=== PATIENT | male | born 1990 | race Caucasian/White ===

== ENCOUNTER 2018-06-07 18:44 | Inpatient (IN) | payer OTHER ==
[2018-06-07] VITALS (13 sets, daily range): BP systolic 120–158; BP diastolic 53–96
[~2018-06-07] VITALS: Ht 188 cm; Wt 86.2 kg
[2018-06-07] MEDS ORDERED: NS 250ML 250 ML IV ONE ×2 (18:47→23:39)
[2018-06-07] MEDS ORDERED: [UNRECOGNIZED DRUG - OTHER] ONE ×3 (18:47→20:45)
[2018-06-07] MEDS ORDERED: MORPHINE SULFATE ONE (18:56)
[2018-06-07] MEDS ORDERED: ZOFRAN ONE (18:56)
[2018-06-07] MEDS ORDERED: BENADRYL ONE (19:02)
[2018-06-07] MEDS ORDERED: TETANUS DIPHTHERIA TOXOIDS IM STA (19:04)
[2018-06-07] MEDS ORDERED: ZOFRAN IV STA (19:04)
[2018-06-07] MEDS ORDERED: BENADRYL IV STA (19:04)
[2018-06-07] MEDS ORDERED: [UNRECOGNIZED DRUG - OTHER] IV STA (19:04)
[2018-06-07] MEDS ORDERED: ROCEPHIN IV STA (19:04)
[2018-06-07] MEDS ORDERED: SOLU-MEDROL ONE (19:09)
[2018-06-07] MEDS ORDERED: PEPCID IV ONE (19:09)
[2018-06-07] MEDS ORDERED: SOLU-MEDROL IV STA (19:10)
[2018-06-07] MEDS ORDERED: PEPCID IV STA (19:10)
[2018-06-07] MEDS ORDERED: EPINEPHRINE SQ STA (19:10)
--- NOTE | 2018-06-07 19:18 | ER.PDOC ---
General Chief Complaint: Requesting Medical Care Stated Complaint: SNAKE BITE TRAVEL OUT OF US: No Time seen by MD: 19:11 Source: patient Exam Limitations: no limitations History of Present Illness Initial Comments Pain and swelling right hand secondary to snake bite. Timing/Duration: 1 hour Severity: moderate Associated Symptoms: nausea/vomiting Allergies: Coded Allergies: No Known Allergies (Unverified , 06/07/18) Past Medical History Medical History: no pertinent history Surgical History: no surgical history Review of Systems Constitutional: no symptoms reported EENTM: no symptoms reported Respiratory: no symptoms reported Cardiovascular: no symptoms reported Gastrointestinal: no symptoms reported Musculoskeletal: see HPI Skin: rash All Other Systems: Reviewed and Negative Physical Exam General Appearance: No Apparent Distress, WD/WN, Anxious EENT: eyes nml inspection Neck: Non-Tender Respiratory: chest non-tender, lungs clear, normal breath sounds, no respiratory distress, no accessory muscle use CVS: reg rate & rhythm, no murmur, no gallop, pulses nml, nml capillary refill Gastrointestinal: Normal Bowel Sounds, No Organomegaly, No Pulsatile Mass, Non Tender Back: Normal Inspection Extremities: Swelling (right hand with 2 punture wounds on the dorsum) 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, No Motor/Sensory Deficits, Alert, Normal Mood/Affect Skin: Rash (macular on trunck and face) Results/Orders Results/Orders Laboratory Tests Test 06/07/18 19:25 White Blood Count 11.9 10^3/uL (4.5-11.0) Red Blood Count 4.97 10^6/uL (4.50-5.90) Hemoglobin 14.8 g/dL (13.9-16.3) Hematocrit 43.2 % (37.0-53.0) Mean Corpuscular Volume 86.9 fL (78-100) Mean Corpuscular Hemoglobin 29.8 pg (26-34) Mean Corpuscular Hemoglobin Concent 34.3 g/dL (33-37) Red Cell Distribution Width 12.1 % (11.5-14.5) Platelet Count 162 10^3/uL (150-400) Mean Platelet Volume 10.2 fL (7.8-11.0) Neutrophils (%) (Auto) 51.5 % (41.0-85.0) Lymphocytes (%) (Auto) 42.1 % (24.0-44.0) Monocytes (%) (Auto) 5.4 % (5.0-12.0) Neutrophils # (Auto) 6.1 10^3/uL (1.8-7.7) Lymphocytes # (Auto) 5.0 10^3/uL (1.0-4.8) Monocytes # (Auto) 0.6 10^3/uL (0.3-0.8) Absolute Immature Granulocyte (auto 0.03 10^3 u/L (0-2) Eosinophils % 0.4 % (0.0-5.0) Basophils % 0.3 % (0.0-0.2) Basophils # 0.0 10^3/uL (0.0-0.1) Eosinophil Count 0.1 10^3/uL (0.0-0.2) Prothrombin Time 12.0 SEC (9.8-11.9) Prothrombin Time INR (Non-Therap) 1.2 Activated Partial Thromboplast Time 22.1 SEC (24.67-30.72) Fibrinogen 167 mg/dL (200-400) Sodium Level 140 mmol/L (132-145) Potassium Level 3.7 mmol/L (3.6-5.2) Chloride Level 107.0 mmol/L (96-109) Carbon Dioxide Level 20.6 mmol/L (20.0-32) Anion Gap 16.1 Blood Urea Nitrogen 24 mg/dL (7-18) Creatinine 1.19 mg/dL (0.59-1.40) Estimated GFR () 89.4 (>/=60) BUN/Creatinine Ratio 20.0 Glucose Level 143 mg/dL (70-110) Calcium Level 8.7 mg/dL (8.4-10.5) Phosphorus Level 3.3 mg/dL (2.5-4.9) Total Bilirubin 0.4 mg/dL (0.2-1.0) Aspartate Amino Transf (AST/SGOT) 18 U/L (0-35) Alanine Aminotransferase (ALT/SGPT) 18 U/L (12-78) Alkaline Phosphatase 68 U/L (50-136) Total Protein 6.7 g/dL (6.4-8.2) Albumin 3.9 g/dL (3.4-5.0) Globulin 2.8 Percent Immature Gran (Cell Imm) 0.30 % (0.00-0.50) Departure Time of Disposition: 20:12 Disposition: 09 ADMITTED INPATIENT Impression: Primary Impression: Bite, snake, venomous Qualified Codes: T63.001A - Toxic effect of unspecified snake venom, accidental (unintentional), initial encounter Condition: Critical Referrals: PCP,UNKNOWN (PCP) PRIMARY CARE PROVIDER Comments Admitted to Dr. Card Duration or Time Spent with Pa: 60 mins Critical Care Note Total Time (mins): 60 TABATAH,KOURTNEY Feliz MD Jun 07, 2018 19:18
--- NOTE | 2018-06-07 19:20 | PCM.EKG ---
[facility] Test Date: 2018-06-07 Test Time: 19:24:41 Pat Name: ASH MCQUEEN Department: Room: ICU2 Gender: M Education Professional: JAVAD : 1990 Requested By: KOURTNEY MAYS Order Number: [id number] Reading MD: Kourtney MAYS Measurements Intervals [place] Rate: 57 P: 67 RI: 160 QRS: 88 QRSD: 112 T: 63 QT: 446 QTc: 434 Interpretive Statements Sinus bradycardia with sinus arrhythmia Otherwise normal ECG No previous ECG available for comparison Electronically Signed On 06-11-2018 23:24:25 CDT by Kourtney MAYS Please click the below link to view image of tracing.
[2018-06-07 19:39] LABS: BASOPHIL % 0.3 % (0.0-0.2); EOSINOPHIL # 0.1 10^3/uL (0.0-0.2); EOSINOPHIL % 0.4 % (0.0-5.0); HEMOGLOBIN 14.8 g/dL (13.9-16.3); LYMPHOCYTES % 42.1 % (24.0-44.0); MEAN CELL HGB 29.8 pg (26-34); MEAN CELL HGB CONCENTRATION 34.3 g/dL (33-37); MEAN CORP VOLUME 86.9 fL (78-100); MEAN PLATELET VOLUME 10.2 fL (7.8-11.0); MONOCYTES # 0.6 10^3/uL (0.3-0.8); MONOCYTES % 5.4 % (5.0-12.0); NEUTROPHIL # 6.1 10^3/uL (1.8-7.7); NEUTROPHILS % 51.5 % (41.0-85.0); RED CELL DISTRIBUTION WIDTH 12.1 % (11.5-14.5); WHITE BLOOD CELL 11.9 10^3/uL (4.5-11.0)
[2018-06-07 19:55] LABS: CALCIUM 8.7 mg/dL (8.4-10.5); CARBON DIOXIDE 20.6 mmol/L (20.0-32)
[2018-06-07] MEDS ORDERED: DILAUDID IV STA (20:11)
[2018-06-07] MEDS ORDERED: D5W-1/2 NS/KCL 20MEQ 1,000 ML IV STA (20:15)
--- NOTE | 2018-06-07 20:15 | PRM.ACF1 ---
Date and Time Date and Time Time: 20:14 Admission Criteria Forms VENOM EXPOSURE FROM BITE OR STING (Place 'X' for any and all applicable criteria): Admission is indicated for 1 or more of the following(1)(2)(3)(4): [ ]I Crotaline snake bite (eg, rattlesnake, cottonmouth, copperhead) with ANY ONE of the following(5)(6)(7): [x ]a) Rattlesnake envenomation(8) [ ]b Envenomation requiring antivenom [A] (9) [ ]c) Evidence of coagulopathy (eg, elevated PT/INR/PTT, uncontrolled bleeding) (10) [ ]II. Black spider bite with 1 OR MORE of the following(2)(11)(12): [ ]a) Severe pain requiring acute inpatient management (Continuous or frequent (eg, every 2 to 4 hours) parenteral analgesics [A] OR necessity (ie, alternative approaches not effective) for analgesic regimen that can only be performed or initiated in inpatient setting) [ ]b) Autonomic symptoms, including nausea, vomiting, diaphoresis, hypertension, or tachycardia [ ]c) Severe respiratory findings (respiratory distress, stridor, gross hemoptysis, or acute cyanosis) [ ]d) Severe airflow or ventilation abnormalities (PCO2 >42mmHg, PCO2 increase > 5mmHg, airflow measurement < 60% of previous best or predicted, Required respiratory treatments that are performable only in acute inpatient setting) [ ]III. Brown recluse spider bite with systemic symptoms, including ANY ONE of the following(2)(12)(13): [ ]a) Fever [ ]b) Chills [ ]c) Vomiting or Nausea [ ]d) Severe airflow or ventilation abnormalities (PCO2 >42mmHg, PCO2 increase > 5mmHg, airflow measurement < 60% of previous best or predicted, Required respiratory treatments that are performable only in acute inpatient setting) [ ]e) Hemolysis [ ]f) Rhabdomyolysis [ ]g) Severe respiratory findings (respiratory distress, stridor, gross hemoptysis, or acute cyanosis) [ ]IV. Scorpion sting with systemic symptoms, including 1 or more of the following(15)(16)(17)(18): [ ]a) Severe airflow or ventilation abnormalities (PCO2 >42mmHg, PCO2 increase > 5mmHg, airflow measurement < 60% of previous best or predicted, Required respiratory treatments that are performable only in acute inpatient setting) [ ]b) Severe respiratory findings (respiratory distress, stridor, gross hemoptysis, or acute cyanosis) [ ]c) Pulmonary edema [ ]d) Hypertension [ ]e) Sweating [ ]f) Priapism [ ]g) Mental status changes [ ]h) Fever [ ]i) Neurologic dysfunction (eg, blurred vision, dysphonia, seizure, paralysis) [ ]j) Hemodynamic instability [ ]V. Inpatient admission required[B] rather than observation care (Use Venom Exposure from Bite or Sting: Observation Care Criteria as appropriate) because 1 or more of the following(7)(11)(17)(19)(20)(21)(22)(23): [ ]a) Expansion of margin (eg, erythema) around envenomation site [ ]b) Hypersensitivity reaction (to bite or antivenin) that is severe or persistent (24)(25)(26) [ ]c) Severe pain requiring acute inpatient management (Continuous or frequent (eg, every 2 to 4 hours) parenteral analgesics [A] OR necessity (ie, alternative approaches not effective) for analgesic regimen that can only be performed or initiated in inpatient setting) [ ]d) Hemodynamic instability [ ]e) Severe respiratory findings (respiratory distress, stridor, gross hemoptysis, or acute cyanosis) [ ]f) Severe airflow or ventilation abnormalities (PCO2 >42mmHg, PCO2 increase > 5mmHg, airflow measurement < 60% of previous best or predicted, Required respiratory treatments that are performable only in acute inpatient setting) [ ]g) Acute renal failure [ ]h) Administration of antivenin that requires monitoring (eg, for anaphylaxis, response) beyond observation care [ ]i) Coagulopathy (eg, elevated PT/INR/PTT, uncontrolled bleeding) [ ]j) Skin necrosis [ ]k) Altered mental status that is severe or persistent [ ]l) Focal neurologic finding or deficit (eg, diplopia, hemiplegia) [ ]m) Vomiting that is severe or persistent [ ]n) Hemolysis [ ]o) Rhabdomyolysis [ ]p) Other condition, treatment, or monitoring requiring inpatient admission .Extended stay beyond goal length of stay may be needed for(7)(40): [ ]a) Compartment syndrome or necrotic tissue(2)(3)(6)(13)(41) [ ]b) Hematologic, liver, renal, respiratory, neurologic, or other abnormalities(6)(17)(33) [ ]c) Continuation of systemic symptoms(14) [ ]d) Immediate hypersensitivity reaction to antivenom(2)(9)(20) The original [facility] [employer] content created by [employer] has been revised. The portions of the content which have been revised are identified through the use of italic text, and [facility] has neither reviewed nor approved the modified material. All other unmodified content is copyright [facility] [employer]. Please see references footnoted in the original [facility] [employer] edition 2013 KOURTNEY MAYS MD Jun 07, 2018 20:15
[2018-06-07] MEDS ORDERED: NS 100ML 100 ML IV ONE (20:19)
[2018-06-07] MEDS ORDERED: ROCEPHIN ONE (20:19)
--- NOTE | 2018-06-07 20:37 | DIREP ---
PROCEDURE:XRAY HAND MIN 3 VW-RT COMPARISON:[facility], CR, XRAY HAND MIN 3 VW-RT, 12/27/2015, 03:14 PM. INDICATIONS:Snake bite FINDINGS: BONES:Normal. JOINTS:Normal. SOFT TISSUES:Rounded metallic foreign body between the 3rd and 4th fingers OTHER:No additional findings. CONCLUSION:Metallic foreign body between the 3rd and 4th fingers on the dorsal side of the hand. Dictated by: Yaron Lance M.D. on 06/07/2018 at 08:35 PM
[2018-06-07] MEDS: NS 1000ML 1,000 ML IV SCH (21:00)
[2018-06-07] MEDS ORDERED: TYLENOL PO PRN (21:00)
[2018-06-07] MEDS ORDERED: ZOFRAN IV PRN (21:00)
[2018-06-07] MEDS ORDERED: PEPCID PO STA (21:02)
[2018-06-07] MEDS: MORPHINE SULFATE IV PRN (21:52)
--- NOTE | 2018-06-07 22:13 | HPH ---
ADMIT DATE: 06/07/2018 CHIEF COMPLAINT: Snake bite. HISTORY OF PRESENT ILLNESS: The patient is a quite healthy 28-year-old male [place]. He found a large rattlesnake on their property and tried to kill it with some kind of farm tool and missed and the snake bit him in the right hand. They finally did kill the snake and positively identified it as a rattlesnake. He came quickly to the ER and arrived here in about 25 minutes. Upon arrival, it was apparent that he had 2 sets of bites in the dorsum of his right hand and his entire right hand dorsum was badly swollen and swelling and erythema progressed during the time he was in the ER up to approximately half to two-thirds of the way up his forearm. He was given 6 vials of CroFab in the ER with substantial resolution of the swelling. The patient was having also symptoms soon after arrival in the ER of nausea, vomiting, acroparesthesias in his hands, mild dizziness, a feeling of his throat closing and shortness of breath and stomach cramps. All of the systemic symptoms cleared up after getting the CroFab except for localized pain in his hand. He currently denies any numbness or weakness of the hand. He denies any current shortness of breath. He is being admitted to ICU for further evaluation. PAST MEDICAL HISTORY: Medical as above. PAST SURGICAL HISTORY: None. ALLERGIES: AMOXICILLIN. CURRENT MEDICATIONS: None. SOCIAL HISTORY: Smokes cigarettes sparingly. Drinks beer and whiskey socially. 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 He is single. FAMILY HISTORY: Noncontributory. REVIEW OF SYSTEMS: PULMONARY: No asthma. CARDIOVASCULAR: No palpitations or syncope. GASTROINTESTINAL: No chronic dyspepsia. NEUROLOGIC: Negative for seizures. A 10-point ROS reviewed and otherwise negative. PHYSICAL EXAMINATION: VITAL SIGNS: Temperature 98.9, pulse 84, respirations 16, BP 124/53, pulse ox 98% on room air. GENERAL: Healthy, young male, in NAD. HEENT: PERRLA, EOMI. Sclerae nonicteric. Conjunctivae injected. Pharynx clear. NECK: Without JVD, thyromegaly or adenopathy. LUNGS: Clear. No wheezes. CARDIOVASCULAR: Normal S1, S2, without significant murmur. ABDOMEN: Without hepatosplenomegaly or masses, nontender, bowel sounds normal. EXTREMITIES: Without C, C or E. The dorsum of his right hand has the aforementioned puncture tovar. It is moderately swollen, the swelling extends to the metacarpal area. NEUROLOGIC: Alert. Cranial nerves intact. Sensation is grossly intact and his hands DTRs 2+/2+. LABORATORY DATA: WBC 11.9, hemoglobin 14.8, platelet 162. CMP is notable for BUN 24, creatinine 1.19, glucose 143. PT 12.0, INR 1.2, PTT 22.1. Fibrinogen 167. IMPRESSION AND PLAN: Rattlesnake bite, right hand. Appears to be moderate severity with systemic symptoms and soft tissue swelling that was progressing up the forearm until CroFab was administered. The case has been discussed with Poison Control. Currently, the plan is to give maintenance CroFab at 2 vials every 6 hours x 3. If systemic symptoms return or swelling starts getting worse, we will administer another loading dose and reconfer with Poison Control. His hand will be kept slightly below the level of the heart. Serial laboratory studies will include CBC with platelet PT, PTT, fibrinogen CPK, renal function and liver enzymes. He will need to be observed in the hospital for 24 hours at least after his last dose of CroFab. We will place on prophylactic Pepcid for gastrointestinal prophylaxis and antihistamine effect. [place] for pain control, saline for hydration. The patient has been admitted to the ICU. His case has been set up with the Poison Control authorities and their contact is [phone]. Seventy minutes spent. Regulo Sharif MD DR: SHAW/merle JOB# [id number]
[2018-06-08] VITALS (56 sets, daily range): BP systolic 113–156; BP diastolic 56–109
[2018-06-08] MEDS ORDERED: [UNRECOGNIZED DRUG - OTHER] IV SCH
[2018-06-08] MEDS: NORCO 5MG PO PRN ×5 (00:30→23:55)
[2018-06-08] MEDS ORDERED: PEPCID ONE (01:34)
[2018-06-08 01:59] LABS: BASOPHIL % 0.1 % (0.0-0.2); HEMOGLOBIN 15.3 g/dL (13.9-16.3); LYMPHOCYTES # 0.8 10^3/uL (1.0-4.8); LYMPHOCYTES % 6.2 % (24.0-44.0); MEAN CELL HGB 30.4 pg (26-34); MEAN CELL HGB CONCENTRATION 34.6 g/dL (33-37); MEAN CORP VOLUME 87.7 fL (78-100); MEAN PLATELET VOLUME 9.7 fL (7.8-11.0); MONOCYTES # 0.3 10^3/uL (0.3-0.8); MONOCYTES % 2.5 % (5.0-12.0); NEUTROPHIL # 11.5 10^3/uL (1.8-7.7); RED CELL DISTRIBUTION WIDTH 12.2 % (11.5-14.5); WHITE BLOOD CELL 12.6 10^3/uL (4.5-11.0)
[2018-06-08 02:17] LABS: CALCIUM 8.4 mg/dL (8.4-10.5); CARBON DIOXIDE 23.3 mmol/L (20.0-32)
[2018-06-08 02:29] LABS: APPEARANCE,URINE CLEAR (CLEAR); BILIRUBIN,URINE NEGATIVE (NEGATIVE); UA COLOR STRAW (YELLOW); UROBILINOGEN,URINE NORMAL (NEGATIVE)
[2018-06-08 02:38] LABS: BAND NEUTROPHILS 19 % (2-6); EOSINOPHIL 1 % (1-4); LYMPHOCYTE 7 % (25-36); MONOCYTE 2 % (3-9); SEGMENTED NEUTROPHILS 71 % (31-76)
[2018-06-08] MEDS ORDERED: NS 250ML 250 ML IV ONE ×2 (03:03→21:35)
[2018-06-08] MEDS ORDERED: [UNRECOGNIZED DRUG - OTHER] IV STA (03:30)
[2018-06-08 05:45] LABS: BASOPHIL % 0.1 % (0.0-0.2); HEMOGLOBIN 15.6 g/dL (13.9-16.3); LYMPHOCYTES # 0.9 10^3/uL (1.0-4.8); LYMPHOCYTES % 9.8 % (24.0-44.0); MEAN CELL HGB 29.8 pg (26-34); MEAN CELL HGB CONCENTRATION 34.4 g/dL (33-37); MEAN CORP VOLUME 86.6 fL (78-100); MONOCYTES # 0.7 10^3/uL (0.3-0.8); MONOCYTES % 7.5 % (5.0-12.0); NEUTROPHIL # 7.9 10^3/uL (1.8-7.7); NEUTROPHILS % 82.4 % (41.0-85.0); RED CELL DISTRIBUTION WIDTH 12.2 % (11.5-14.5); WHITE BLOOD CELL 9.6 10^3/uL (4.5-11.0)
[2018-06-08 06:13] LABS: CALCIUM 8.7 mg/dL (8.4-10.5); CARBON DIOXIDE 25.1 mmol/L (20.0-32)
[2018-06-08] MEDS: MORPHINE SULFATE IV PRN ×3 (07:45→18:11)
[2018-06-08] MEDS: NS 1000ML 1,000 ML IV SCH ×2 (07:48→16:39)
--- NOTE | 2018-06-08 08:09 | PRM.PN ---
Subjective Subjective Date: Jun 08, 2018 Time: 08:00 Subjective Pt reports pain under control VTE VTE Risk Total Score: 0 VTE Risk Score VTE Risk: Score 0-1 = Low Risk (Aggressive mobilization; early ambulation; no VTE prophylaxis required) Score 2: Moderate Risk (Intermittent/Pneumatic Compression Device OR Lovenox/Heparin/Coumadin) Score 3-4: High Risk (Intermittent/Pneumatic Compression Device AND Lovenox/Heparin/Coumadin) Score > or =5: Highest Risk (Intermittent/Pneumatic Compression Device AND Lovenox/Heparin/Coumadin) Antico:Hep/LMWH/Coum/Xarelto: No Mechanical device ordered: No Review of Systems Constitutional: No: Fever, Chills, Sweats, Weakness, Malaise Eyes: No: Pain, Vision change, Conjunctivae inflammation ENT: No: Ear pain, Ear discharge, Nose pain Respiratory: No: Cough, Dry, Shortness of breath, SOB with excertion Cardiovascular: No: Chest Pain, Palpitations, Orthopnea, Paroxysmal Noc. Dyspnea Gastrointestinal: No: Nausea, Vomiting, Abdominal Pain, Diarrhea Genitourinary: No Dysuria, No Frequency, No Incontinence Musculoskeletal: arm pain (R); No: neck pain, shoulder pain Skin: Lesions (dorsum of R hand); No: Jaundice Neurological: No: Numbness, Incoordination, Confusion, Seizures Allergies: Coded Allergies: No Known Allergies (Unverified , 06/07/18) Objective Vitals and I/O Vital Sign - Last 24 Hours 06/07/18 06/07/18 06/07/18 06/07/18 18:45 19:00 19:00 19:20 Temp 98.9 98.9 98.9 98.9 Pulse 84 67 Resp 24 16 16 16 B/P (MAP) 124/53 (76) 136/96 (109) Pulse Ox 98 95 O2 Delivery Room Air Room Air 06/07/18 06/07/18 06/07/18 06/07/18 19:20 19:40 19:40 19:45 Temp 98.9 98.9 98.9 98.9 Pulse 59 58 60 Resp 16 18 16 18 B/P (MAP) 130/84 (99) Pulse Ox 98 98 O2 Delivery Room Air Room Air 06/07/18 06/07/18 06/07/18 06/07/18 19:45 19:57 19:57 20:15 Temp 98.9 98.9 Pulse 59 54 Resp 18 16 16 18 B/P (MAP) 136/96 (109) 120/74 (89) Pulse Ox 98 97 O2 Delivery Room Air Room Air 06/07/18 06/07/18 06/07/18 06/07/18 20:15 20:45 20:45 21:30 Pulse 58 61 Resp 18 16 16 14 B/P (MAP) 121/68 (85) Pulse Ox 100 98 O2 Delivery Room Air 06/07/18 06/07/18 06/07/18 06/07/18 21:35 21:45 21:50 22:05 Pulse 57 57 67 61 Resp 11 16 10 26 B/P (MAP) 144/86 (105) 151/88 (109) 157/83 (107) Pulse Ox 98 99 96 98 06/07/18 06/07/18 06/07/18 06/07/18 22:15 22:20 22:30 22:35 Temp 98.4 98.4 Pulse 61 61 70 Resp 20 30 B/P (MAP) 142/85 (104) 158/75 (102) Pulse Ox 96 98 98 100 06/07/18 06/07/18 06/07/18 06/07/18 22:45 23:17 23:35 23:45 Pulse 60 62 Resp 16 B/P (MAP) 154/78 (103) Pulse Ox 99 97 98 O2 Delivery Room Air 06/07/18 06/08/18 06/08/18 06/08/18 23:50 00:00 00:00 00:05 Pulse 85 55 60 Resp 18 16 13 B/P (MAP) 138/86 (103) 129/78 (95) Pulse Ox 97 98 98 O2 Delivery Room Air 06/08/18 06/08/18 06/08/18 06/08/18 00:15 00:20 00:30 00:35 Pulse 75 63 62 66 Resp 14 16 17 14 B/P (MAP) 129/87 (101) 143/78 (99) Pulse Ox 98 97 97 97 06/08/18 06/08/18 06/08/18 06/08/18 00:45 00:50 01:00 01:05 Pulse 71 59 57 60 Resp 19 14 13 13 B/P (MAP) 141/73 (95) 142/70 (94) Pulse Ox 97 95 95 96 06/08/18 06/08/18 06/08/18 06/08/18 01:15 01:20 01:30 01:35 Pulse 60 56 55 60 Resp 16 12 12 12 B/P (MAP) 143/79 (100) 135/78 (97) Pulse Ox 98 96 95 95 06/08/18 06/08/18 06/08/18 06/08/18 01:50 02:00 02:45 02:50 Temp 98.4 98.4 Pulse 56 57 84 Resp 15 20 20 B/P (MAP) 135/75 (95) 130/83 (99) Pulse Ox 96 97 95 96 06/08/18 06/08/18 06/08/18 06/08/18 03:00 03:05 03:15 03:20 Pulse 55 68 56 Resp 20 20 20 B/P (MAP) 129/81 (97) 142/78 (99) Pulse Ox 95 96 96 96 06/08/18 06/08/18 06/08/18 06/08/18 03:45 03:50 04:00 04:00 Pulse 58 53 Resp 20 B/P (MAP) 127/75 (92) Pulse Ox 98 97 99 O2 Delivery Room Air 06/08/18 06/08/18 06/08/18 06/08/18 04:05 04:15 04:20 04:30 Pulse 56 52 60 53 Resp 14 18 16 B/P (MAP) 134/75 (94) 132/89 (103) Pulse Ox 96 98 98 96 06/08/18 06/08/18 06/08/18 06/08/18 04:35 04:45 04:50 05:15 Pulse 51 53 52 53 Resp 22 20 16 17 B/P (MAP) 137/76 (96) 140/79 (99) Pulse Ox 95 96 95 95 06/08/18 05:30 Pulse 59 Resp 16 Pulse Ox 97 Intake and Output 06/07/18 06/07/18 06/08/18 15:00 23:00 07:00 Intake Total 1500 ml Output Total 200 ml Balance 1300 ml General: Alert, Oriented X3, Cooperative, No acute distress HEENT: Atraumatic, PERRLA, EOMI Neck: Supple, No JVD, No thyromegaly Lungs: Clear to auscultation, Normal air movement Heart: Regular rate, Normal S1, Normal S2 Abdomen: Normal bowel sounds, Soft, No tenderness Extremities: Other (R hand edema to R upper arm) Neuro: Normal speech Psych/Mental Status: Mental status NL, Mood NL Course Sepsis Screening Results: Posi: NEGATIVE Sepsis Qualifier/Stage: NO DEFINITE RISK Vitals & review Data Vital Sign - Last 24 Hours 06/07/18 06/07/18 06/07/18 06/07/18 18:45 19:00 19:00 19:20 Temp 98.9 98.9 98.9 98.9 Pulse 84 67 Resp 24 16 16 16 B/P (MAP) 124/53 (76) 136/96 (109) Pulse Ox 98 95 O2 Delivery Room Air Room Air 06/07/18 06/07/18 06/07/18 06/07/18 19:20 19:40 19:40 19:45 Temp 98.9 98.9 98.9 98.9 Pulse 59 58 60 Resp 16 18 16 18 B/P (MAP) 130/84 (99) Pulse Ox 98 98 O2 Delivery Room Air Room Air 06/07/18 06/07/18 06/07/18 06/07/18 19:45 19:57 19:57 20:15 Temp 98.9 98.9 Pulse 59 54 Resp 18 16 16 18 B/P (MAP) 136/96 (109) 120/74 (89) Pulse Ox 98 97 O2 Delivery Room Air Room Air 06/07/18 06/07/18 06/07/18 06/07/18 20:15 20:45 20:45 21:30 Pulse 58 61 Resp 18 16 16 14 B/P (MAP) 121/68 (85) Pulse Ox 100 98 O2 Delivery Room Air 06/07/18 06/07/18 06/07/18 06/07/18 21:35 21:45 21:50 22:05 Pulse 57 57 67 61 Resp 11 16 10 26 B/P (MAP) 144/86 (105) 151/88 (109) 157/83 (107) Pulse Ox 98 99 96 98 06/07/18 06/07/18 06/07/18 06/07/18 22:15 22:20 22:30 22:35 Temp 98.4 98.4 Pulse 61 61 70 Resp 20 30 B/P (MAP) 142/85 (104) 158/75 (102) Pulse Ox 96 98 98 100 06/07/18 06/07/18 06/07/18 06/07/18 22:45 23:17 23:35 23:45 Pulse 60 62 Resp 16 B/P (MAP) 154/78 (103) Pulse Ox 99 97 98 O2 Delivery Room Air 06/07/18 06/08/18 06/08/18 06/08/18 23:50 00:00 00:00 00:05 Pulse 85 55 60 Resp 18 16 13 B/P (MAP) 138/86 (103) 129/78 (95) Pulse Ox 97 98 98 O2 Delivery Room Air 06/08/18 06/08/18 06/08/18 06/08/18 00:15 00:20 00:30 00:35 Pulse 75 63 62 66 Resp 14 16 17 14 B/P (MAP) 129/87 (101) 143/78 (99) Pulse Ox 98 97 97 97 06/08/18 06/08/18 06/08/18 06/08/18 00:45 00:50 01:00 01:05 Pulse 71 59 57 60 Resp 19 14 13 13 B/P (MAP) 141/73 (95) 142/70 (94) Pulse Ox 97 95 95 96 06/08/18 06/08/18 06/08/18 06/08/18 01:15 01:20 01:30 01:35 Pulse 60 56 55 60 Resp 16 12 12 12 B/P (MAP) 143/79 (100) 135/78 (97) Pulse Ox 98 96 95 95 06/08/18 06/08/18 06/08/18 06/08/18 01:50 02:00 02:45 02:50 Temp 98.4 98.4 Pulse 56 57 84 Resp 15 20 20 B/P (MAP) 135/75 (95) 130/83 (99) Pulse Ox 96 97 95 96 06/08/18 06/08/18 06/08/18 06/08/18 03:00 03:05 03:15 03:20 Pulse 55 68 56 Resp 20 20 20 B/P (MAP) 129/81 (97) 142/78 (99) Pulse Ox 95 96 96 96 06/08/18 06/08/18 06/08/18 06/08/18 03:45 03:50 04:00 04:00 Pulse 58 53 Resp 20 B/P (MAP) 127/75 (92) Pulse Ox 98 97 99 O2 Delivery Room Air 06/08/18 06/08/18 06/08/18 06/08/18 04:05 04:15 04:20 04:30 Pulse 56 52 60 53 Resp 14 18 16 B/P (MAP) 134/75 (94) 132/89 (103) Pulse Ox 96 98 98 96 06/08/18 06/08/18 06/08/18 06/08/18 04:35 04:45 04:50 05:15 Pulse 51 53 52 53 Resp 22 20 16 17 B/P (MAP) 137/76 (96) 140/79 (99) Pulse Ox 95 96 95 95 06/08/18 05:30 Pulse 59 Resp 16 Pulse Ox 97 Intake and Output 06/07/18 06/07/18 06/08/18 15:00 23:00 07:00 Intake Total 1500 ml Output Total 200 ml Balance 1300 ml Laboratory Tests Test 06/07/18 19:25 06/07/18 20:56 06/08/18 01:52 06/08/18 02:18 White Blood Count 11.9 10^3/uL 12.6 10^3/uL Red Blood Count 4.97 10^6/uL 5.04 10^6/uL Hemoglobin 14.8 g/dL 15.3 g/dL Hematocrit 43.2 % 44.2 % Mean Corpuscular Volume 86.9 fL 87.7 fL Mean Corpuscular Hemoglobin 29.8 pg 30.4 pg Mean Corpuscular Hemoglobin Concent 34.3 g/dL 34.6 g/dL Red Cell Distribution Width 12.1 % 12.2 % Platelet Count 162 10^3/uL 195 10^3/uL Mean Platelet Volume 10.2 fL 9.7 fL Neutrophils (%) (Auto) 51.5 % 91.0 % Lymphocytes (%) (Auto) 42.1 % 6.2 % Monocytes (%) (Auto) 5.4 % 2.5 % Neutrophils # (Auto) 6.1 10^3/uL 11.5 10^3/uL Lymphocytes # (Auto) 5.0 10^3/uL 0.8 10^3/uL Monocytes # (Auto) 0.6 10^3/uL 0.3 10^3/uL Absolute Immature Granulocyte (auto 0.03 10^3 u/L 0.03 10^3 u/L Eosinophils % 0.4 % 0.0 % Basophils % 0.3 % 0.1 % Basophils # 0.0 10^3/uL 0.0 10^3/uL Eosinophil Count 0.1 10^3/uL 0.0 10^3/uL Prothrombin Time 12.0 SEC 11.4 SEC Prothrombin Time INR (Non-Therap) 1.2 1.1 Activated Partial Thromboplast Time 22.1 SEC 24.4 SEC Fibrinogen 167 mg/dL 165 mg/dL Sodium Level 140 mmol/L 138 mmol/L Potassium Level 3.7 mmol/L 4.3 mmol/L Chloride Level 107.0 mmol/L 104.0 mmol/L Carbon Dioxide Level 20.6 mmol/L 23.3 mmol/L Anion Gap 16.1 15.0 Blood Urea Nitrogen 24 mg/dL 18 mg/dL Creatinine 1.19 mg/dL 1.18 mg/dL Estimated GFR () 89.4 90.3 BUN/Creatinine Ratio 20.0 15.0 Glucose Level 143 mg/dL 171 mg/dL Calcium Level 8.7 mg/dL 8.4 mg/dL Phosphorus Level 3.3 mg/dL Total Bilirubin 0.4 mg/dL 0.5 mg/dL Aspartate Amino Transf (AST/SGOT) 18 U/L 20 U/L Alanine Aminotransferase (ALT/SGPT) 18 U/L 23 U/L Alkaline Phosphatase 68 U/L 64 U/L Total Creatine Kinase 240 U/L 292 U/L Total Protein 6.7 g/dL 6.7 g/dL Albumin 3.9 g/dL 3.7 g/dL Globulin 2.8 3.0 Percent Immature Gran (Cell Imm) 0.30 % 0.20 % Urine Collection Type CCMS Urine Color STRAW Urine Appearance CLEAR Urine Bilirubin NEGATIVE MG/DL Urine Ketones 50 mg/dL Urine Specific [place] 1.015 Urine pH 5 Urine Protein NEGATIVE Urine Urobilinogen NORMAL Urine Nitrate NEGATIVE Urine Leukocyte Esterase NEGATIVE Urine Blood NEGATIVE Urine Glucose NORMAL Differential Total Cells Counted 100 #CELLS Segmented Neutrophils 71 % Band Neutrophils 19 % Lymphocytes 7 % Monocytes 2 % Absolute Eosinophils (Manual) 1 % Atypical Lymphocytes % Test 06/08/18 05:38 White Blood Count 9.6 10^3/uL Red Blood Count 5.24 10^6/uL Hemoglobin 15.6 g/dL Hematocrit 45.4 % Mean Corpuscular Volume 86.6 fL Mean Corpuscular Hemoglobin 29.8 pg Mean Corpuscular Hemoglobin Concent 34.4 g/dL Red Cell Distribution Width 12.2 % Platelet Count 188 10^3/uL Mean Platelet Volume 10.0 fL Neutrophils (%) (Auto) 82.4 % Lymphocytes (%) (Auto) 9.8 % Monocytes (%) (Auto) 7.5 % Neutrophils # (Auto) 7.9 10^3/uL Lymphocytes # (Auto) 0.9 10^3/uL Monocytes # (Auto) 0.7 10^3/uL Absolute Immature Granulocyte (auto 0.02 10^3 u/L Eosinophils % 0.0 % Basophils % 0.1 % Basophils # 0.0 10^3/uL Eosinophil Count 0.0 10^3/uL Prothrombin Time 12.3 SEC Prothrombin Time INR (Non-Therap) 1.2 Activated Partial Thromboplast Time 24.3 SEC Fibrinogen 182 mg/dL Sodium Level 138 mmol/L Potassium Level 4.5 mmol/L Chloride Level 105.0 mmol/L Carbon Dioxide Level 25.1 mmol/L Anion Gap 12.4 Blood Urea Nitrogen 17 mg/dL Creatinine 1.21 mg/dL Estimated GFR () 87.7 BUN/Creatinine Ratio 14.0 Glucose Level 207 mg/dL Calcium Level 8.7 mg/dL Total Bilirubin 0.6 mg/dL Aspartate Amino Transf (AST/SGOT) 17 U/L Alanine Aminotransferase (ALT/SGPT) 8 U/L Alkaline Phosphatase 61 U/L Total Creatine Kinase 297 U/L Total Protein 6.7 g/dL Albumin 3.8 g/dL Globulin 2.9 Percent Immature Gran (Cell Imm) 0.20 % Current Medications Medications (Trade) Dose Ordered Sig/Manuel PRN Reason Start Time Stop Time Status Last Admin Acetaminophen (Tylenol) 1,000 mg Q6H PRN PAIN MILD 06/07/18 21:00 07/07/18 20:59 Acetaminophen/ Hydrocodone Bitart ([place] 5mg) 1 ea Q4H PRN PAIN 06/07/18 21:00 07/07/18 20:59 06/08/18 00:30 Crotalidae Polyvalent Antivenin (Crofab) 2 vial Q6HR 06/08/18 00:00 06/08/18 12:01 06/08/18 01:04 Famotidine (Pepcid) 20 mg BID 06/08/18 09:00 07/08/18 08:59 Morphine Sulfate (Morphine Sulfate) 2 mg Q4H PRN PAIN 06/07/18 22:00 07/07/18 21:59 06/08/18 07:45 Ondansetron HCl (Zofran) 4 mg Q4H PRN NAUSEA / VOMITING 06/07/18 21:00 07/07/18 20:59 Sodium Chloride 1,000 ml @ 100 mls/hr Q10H 06/07/18 21:00 07/07/18 20:59 06/08/18 07:48 Assessment/Plan Assessment/Plan Assessment/Plan 28 yo male with rattlesnake bit - cont CroFab q 6 hr - follow coags - no evidence of compartment syndrome now SERA BROWN MD Jun 08, 2018 08:09
[2018-06-08] MEDS: PEPCID PO SCH ×2 (09:11→21:00)
[2018-06-08] MEDS: [UNRECOGNIZED DRUG - OTHER] IV SCH ×3 (09:56→22:00)
[2018-06-08] MEDS: NS IV SCH ×3 (09:56→22:00)
[2018-06-08 11:37] LABS: BASOPHIL % 0.2 % (0.0-0.2); HEMOGLOBIN 15.4 g/dL (13.9-16.3); LYMPHOCYTES # 1.9 10^3/uL (1.0-4.8); MEAN CELL HGB CONCENTRATION 34.5 g/dL (33-37); MEAN PLATELET VOLUME 9.9 fL (7.8-11.0); MONOCYTES # 1.2 10^3/uL (0.3-0.8); MONOCYTES % 11.7 % (5.0-12.0); NEUTROPHILS % 68.9 % (41.0-85.0); RED CELL DISTRIBUTION WIDTH 12.3 % (11.5-14.5); WHITE BLOOD CELL 10.1 10^3/uL (4.5-11.0)
[2018-06-08 11:55] LABS: CALCIUM 8.4 mg/dL (8.4-10.5); CARBON DIOXIDE 25.3 mmol/L (20.0-32)
[2018-06-08 18:14] LABS: BASOPHIL % 0.2 % (0.0-0.2); EOSINOPHIL % 0.1 % (0.0-5.0); HEMOGLOBIN 15.5 g/dL (13.9-16.3); LYMPHOCYTES # 3.5 10^3/uL (1.0-4.8); LYMPHOCYTES % 27.5 % (24.0-44.0); MEAN CELL HGB 29.9 pg (26-34); MEAN CELL HGB CONCENTRATION 34.3 g/dL (33-37); MEAN CORP VOLUME 87.3 fL (78-100); MEAN PLATELET VOLUME 9.9 fL (7.8-11.0); MONOCYTES # 1.5 10^3/uL (0.3-0.8); MONOCYTES % 11.9 % (5.0-12.0); NEUTROPHIL # 7.6 10^3/uL (1.8-7.7); NEUTROPHILS % 60.1 % (41.0-85.0); RED CELL DISTRIBUTION WIDTH 12.4 % (11.5-14.5); WHITE BLOOD CELL 12.6 10^3/uL (4.5-11.0)
[2018-06-08] MEDS ORDERED: ZOFRAN IV STA (20:36)
[2018-06-08] MEDS ORDERED: DILAUDID IV ONE (21:00)
[2018-06-08] MEDS ORDERED: BENADRYL ONE (23:47)
[2018-06-08] MEDS ORDERED: BENADRYL IV STA (23:52)
[2018-06-09] VITALS (23 sets, daily range): BP systolic 117–157; BP diastolic 42–100
[2018-06-09 00:46] LABS: CARBON DIOXIDE 26.5 mmol/L (20.0-32)
[2018-06-09 01:05] LABS: HEMOGLOBIN 14.1 g/dL (13.9-16.3); LYMPHOCYTES % 35.5 % (24.0-44.0); MEAN CELL HGB 30.7 pg (26-34); MEAN CELL HGB CONCENTRATION 34.9 g/dL (33-37); MEAN PLATELET VOLUME 9.9 fL (7.8-11.0); MONOCYTES % 9.4 % (5.0-12.0); NEUTROPHILS % 54.5 % (41.0-85.0); PLATELET COUNT 163 10^3/uL (150-400); RED CELL DISTRIBUTION WIDTH 12.4 % (11.5-14.5); WHITE BLOOD CELL 9.5 10^3/uL (4.5-11.0)
[2018-06-09 01:06] LABS: BASOPHIL % 0.3 % (0.0-0.2); EOSINOPHIL % 0.3 % (0.0-5.0); LYMPHOCYTES # 3.4 10^3/uL (1.0-4.8); MONOCYTES # 0.9 10^3/uL (0.3-0.8); NEUTROPHIL # 5.2 10^3/uL (1.8-7.7)
[2018-06-09 01:15] LABS: BILIRUBIN,URINE NEGATIVE (NEGATIVE); UROBILINOGEN,URINE NORMAL (NEGATIVE)
[2018-06-09 01:16] LABS: APPEARANCE,URINE CLEAR (CLEAR); UA COLOR YELLOW (YELLOW)
[2018-06-09] MEDS: NS 1000ML 1,000 ML IV SCH ×3 (03:00→19:48)
[2018-06-09 06:07] LABS: BASOPHIL % 0.3 % (0.0-0.2); EOSINOPHIL # 0.1 10^3/uL (0.0-0.2); EOSINOPHIL % 0.6 % (0.0-5.0); HEMOGLOBIN 14.1 g/dL (13.9-16.3); LYMPHOCYTES # 3.8 10^3/uL (1.0-4.8); LYMPHOCYTES % 41.8 % (24.0-44.0); MEAN CELL HGB 29.9 pg (26-34); MEAN CELL HGB CONCENTRATION 33.6 g/dL (33-37); MONOCYTES # 0.7 10^3/uL (0.3-0.8); MONOCYTES % 8.1 % (5.0-12.0); NEUTROPHIL # 4.4 10^3/uL (1.8-7.7); NEUTROPHILS % 48.3 % (41.0-85.0); RED CELL DISTRIBUTION WIDTH 12.6 % (11.5-14.5)
[2018-06-09 06:37] LABS: CALCIUM 8.5 mg/dL (8.4-10.5); CARBON DIOXIDE 23.8 mmol/L (20.0-32)
[2018-06-09] MEDS: PEPCID PO SCH ×2 (08:54→19:56)
[2018-06-09] MEDS: MORPHINE SULFATE IV PRN ×2 (08:55→16:08)
[2018-06-09] MEDS: NORCO 5MG PO PRN ×3 (12:51→22:34)
--- NOTE | 2018-06-09 13:10 | PRM.PN ---
Subjective Subjective Date: Jun 09, 2018 Time: 13:00 Subjective Pt feeling better; pain is improved VTE VTE Risk Total Score: 0 VTE Risk Score VTE Risk: Score 0-1 = Low Risk (Aggressive mobilization; early ambulation; no VTE prophylaxis required) Score 2: Moderate Risk (Intermittent/Pneumatic Compression Device OR Lovenox/Heparin/Coumadin) Score 3-4: High Risk (Intermittent/Pneumatic Compression Device AND Lovenox/Heparin/Coumadin) Score > or =5: Highest Risk (Intermittent/Pneumatic Compression Device AND Lovenox/Heparin/Coumadin) Antico:Hep/LMWH/Coum/Xarelto: No Mechanical device ordered: No Review of Systems Constitutional: No: Fever, Chills, Sweats, Weakness, Malaise Eyes: No: Pain, Vision change, Conjunctivae inflammation ENT: No: Ear pain, Ear discharge, Nose pain Respiratory: No: Cough, Dry, Shortness of breath, SOB with excertion Cardiovascular: No: Chest Pain, Palpitations, Orthopnea, Paroxysmal Noc. Dyspnea Gastrointestinal: No: Nausea, Vomiting, Abdominal Pain, Diarrhea Genitourinary: No Dysuria, No Frequency, No Incontinence Musculoskeletal: arm pain (R); No: neck pain, shoulder pain Skin: Lesions (dorsum of R hand); No: Jaundice Neurological: No: Numbness, Incoordination, Confusion, Seizures Allergies: Coded Allergies: No Known Allergies (Unverified , 06/07/18) Objective Vitals and I/O Vital Sign - Last 24 Hours 06/08/18 06/08/18 06/08/18 06/08/18 13:15 13:18 13:30 13:33 Pulse 74 59 55 55 Resp 16 18 14 14 B/P (MAP) 128/76 (93) 129/75 (93) Pulse Ox 96 98 98 06/08/18 06/08/18 06/08/18 06/08/18 13:45 13:48 14:00 14:03 Pulse 56 50 63 53 Resp 16 15 11 14 B/P (MAP) 134/79 (97) 140/75 (96) Pulse Ox 97 97 99 97 06/08/18 06/08/18 06/08/18 06/08/18 14:15 14:18 14:30 14:45 Pulse 48 56 51 60 Resp 12 14 13 B/P (MAP) 148/94 (112) Pulse Ox 97 97 98 97 06/08/18 06/08/18 06/08/18 06/08/18 14:48 15:00 15:03 15:15 Pulse 57 60 61 62 Resp 13 12 12 10 B/P (MAP) 132/72 (92) 113/92 (99) Pulse Ox 98 98 97 99 06/08/18 06/08/18 06/08/18 06/08/18 15:18 15:30 15:33 15:45 Pulse 58 59 61 71 Resp 17 11 14 B/P (MAP) 129/56 (80) 156/68 (97) Pulse Ox 97 98 99 99 06/08/18 06/08/18 06/08/18 06/08/18 15:48 16:00 16:00 16:03 Temp 98.3 98.3 Pulse 73 62 62 Resp 16 13 15 B/P (MAP) 128/81 (97) 146/77 (100) Pulse Ox 98 98 98 O2 Delivery Room Air 06/08/18 06/08/18 06/08/18 06/08/18 16:15 16:19 16:30 16:34 Pulse 54 53 79 59 Resp 16 11 26 15 B/P (MAP) 138/78 (98) 129/80 (96) Pulse Ox 97 97 97 96 06/08/18 06/08/18 06/08/18 06/08/18 16:45 16:48 17:00 17:15 Pulse 65 72 60 67 Resp 11 22 19 B/P (MAP) 154/109 (124) Pulse Ox 98 98 98 95 06/08/18 06/08/18 06/08/18 06/08/18 17:18 17:30 17:33 17:45 Pulse 55 67 57 60 Resp 16 9 10 15 B/P (MAP) 148/81 (103) 123/70 (87) Pulse Ox 95 94 97 97 06/08/18 06/08/18 06/08/18 06/08/18 17:48 18:00 18:03 18:33 Pulse 56 66 51 50 Resp 19 15 10 11 B/P (MAP) 146/72 (96) 140/69 (92) 138/78 (98) Pulse Ox 96 96 94 06/08/18 06/08/18 06/08/18 06/08/18 19:00 19:03 19:15 19:18 Pulse 53 52 50 56 Resp 12 14 12 17 B/P (MAP) 139/78 (98) 136/82 (100) Pulse Ox 96 97 97 98 06/08/18 06/08/18 06/08/18 06/08/18 19:30 19:45 19:46 20:00 Pulse 51 54 53 Resp 12 14 63 Pulse Ox 97 97 97 O2 Delivery Room Air 06/08/18 06/08/18 06/08/18 06/08/18 20:14 20:15 20:19 20:30 Pulse 59 49 48 52 Resp 181 12 11 10 B/P (MAP) 137/88 (104) 139/86 (103) Pulse Ox 99 98 98 98 06/08/18 06/08/18 06/08/18 06/08/18 22:30 22:45 22:49 23:00 Pulse 66 48 49 52 Resp 12 10 10 10 B/P (MAP) 133/65 (87) Pulse Ox 97 95 94 95 06/08/18 06/08/18 06/08/18 06/08/18 23:15 23:30 23:45 23:50 Pulse 61 49 50 Resp 12 11 16 B/P (MAP) 135/75 (95) Pulse Ox 99 95 95 98 06/09/18 06/09/18 06/09/18 06/09/18 00:00 00:00 00:15 00:19 Pulse 46 B/P (MAP) 133/71 (91) Pulse Ox 95 95 97 O2 Delivery Room Air 06/09/18 06/09/18 06/09/18 06/09/18 00:30 00:45 00:49 01:49 Pulse 48 51 51 43 Resp 16 16 16 B/P (MAP) 128/82 (97) 123/75 (91) Pulse Ox 97 98 98 97 06/09/18 06/09/18 06/09/18 06/09/18 02:00 02:15 02:19 02:30 Pulse 49 65 42 61 Resp 18 16 16 B/P (MAP) 135/72 (93) Pulse Ox 95 96 96 98 06/09/18 06/09/18 06/09/18 06/09/18 02:45 02:49 03:00 03:15 Pulse 59 46 46 46 Resp 16 20 B/P (MAP) 117/71 (86) Pulse Ox 97 97 97 96 06/09/18 06/09/18 06/09/18 06/09/18 03:18 03:30 03:45 03:49 Pulse 46 45 48 39 Resp 18 20 14 20 B/P (MAP) 126/79 (95) 126/78 (94) Pulse Ox 96 96 96 96 06/09/18 06/09/18 06/09/18 06/09/18 04:00 04:00 04:15 04:18 Pulse 48 43 42 Resp 16 18 16 B/P (MAP) 131/93 (106) Pulse Ox 95 96 96 O2 Delivery Room Air 06/09/18 06/09/18 06/09/18 06/09/18 04:30 04:45 04:48 05:00 Pulse 45 47 47 55 Resp 16 12 16 B/P (MAP) 136/82 (100) Pulse Ox 97 97 96 97 06/09/18 06/09/18 06/09/18 06/09/18 05:15 05:19 05:30 05:45 Pulse 42 38 82 64 Resp 10 B/P (MAP) 133/78 (96) Pulse Ox 97 97 98 99 06/09/18 06/09/18 06/09/18 06/09/18 05:48 06:30 06:45 07:00 Temp 98.0 98.0 Pulse 46 48 47 50 Resp 25 11 18 B/P (MAP) 123/89 (100) Pulse Ox 97 95 96 96 06/09/18 06/09/18 06/09/18 06/09/18 07:00 07:15 07:30 07:45 Pulse 53 45 46 Resp 18 Pulse Ox 97 97 97 O2 Delivery Room Air 06/09/18 06/09/18 06/09/18 06/09/18 08:00 08:02 08:15 08:30 Pulse 48 46 39 45 Resp 15 18 13 B/P (MAP) 135/88 (104) Pulse Ox 99 98 99 96 06/09/18 06/09/18 06/09/18 06/09/18 08:32 08:45 09:00 09:02 Pulse 39 47 87 54 Resp 16 11 18 B/P (MAP) 140/90 (107) 129/78 (95) Pulse Ox 98 97 97 99 06/09/18 06/09/18 06/09/18 06/09/18 09:15 09:30 09:32 09:45 Pulse 60 48 63 48 Resp 12 10 B/P (MAP) 122/79 (93) Pulse Ox 97 96 98 97 06/09/18 06/09/18 06/09/18 06/09/18 10:00 10:02 10:15 10:30 Pulse 46 41 46 41 Resp 10 19 17 B/P (MAP) 130/72 (91) Pulse Ox 98 98 98 98 06/09/18 06/09/18 06/09/18 06/09/18 10:32 10:45 11:12 11:30 Pulse 84 54 48 63 Resp 14 20 27 19 B/P (MAP) 125/100 (108) 123/42 (69) Pulse Ox 97 98 99 06/09/18 06/09/18 06/09/18 06/09/18 11:42 11:45 12:00 12:00 Temp 98.0 98.0 Pulse 45 52 66 Resp 12 13 18 B/P (MAP) 133/70 (91) Pulse Ox 97 97 O2 Delivery Room Air 06/09/18 06/09/18 12:12 12:15 Pulse 45 48 Resp 12 12 B/P (MAP) 129/61 (83) Pulse Ox 97 Intake and Output 06/08/18 06/08/18 06/09/18 15:00 23:00 07:00 Intake Total 400 ml 2103 ml 2038 ml Output Total 850 ml 1100 ml Balance 400 ml 1253 ml 938 ml General: Alert, Oriented X3, Cooperative, No acute distress HEENT: Atraumatic, PERRLA, EOMI Neck: Supple, No JVD, No thyromegaly Lungs: Clear to auscultation, Normal air movement Heart: Normal S1, Normal S2 Abdomen: Normal bowel sounds, No tenderness Extremities: No clubbing, No cyanosis Neuro: Normal speech Psych/Mental Status: Mental status NL, Mood NL Course Sepsis Screening Results: Posi: NEGATIVE Sepsis Qualifier/Stage: NO DEFINITE RISK Vitals & review Data Vital Sign - Last 24 Hours 06/07/18 06/07/18 06/07/18 06/07/18 18:45 19:00 19:00 19:20 Temp 98.9 98.9 98.9 98.9 Pulse 84 67 Resp 24 16 16 16 B/P (MAP) 124/53 (76) 136/96 (109) Pulse Ox 98 95 O2 Delivery Room Air Room Air 06/07/18 06/07/18 06/07/18 06/07/18 19:20 19:40 19:40 19:45 Temp 98.9 98.9 98.9 98.9 Pulse 59 58 60 Resp 16 18 16 18 B/P (MAP) 130/84 (99) Pulse Ox 98 98 O2 Delivery Room Air Room Air 06/07/18 06/07/18 06/07/18 06/07/18 19:45 19:57 19:57 20:15 Temp 98.9 98.9 Pulse 59 54 Resp 18 16 16 18 B/P (MAP) 136/96 (109) 120/74 (89) Pulse Ox 98 97 O2 Delivery Room Air Room Air 06/07/18 06/07/18 06/07/18 06/07/18 20:15 20:45 20:45 21:30 Pulse 58 61 Resp 18 16 16 14 B/P (MAP) 121/68 (85) Pulse Ox 100 98 O2 Delivery Room Air 06/07/18 06/07/18 06/07/18 06/07/18 21:35 21:45 21:50 22:05 Pulse 57 57 67 61 Resp 11 16 10 26 B/P (MAP) 144/86 (105) 151/88 (109) 157/83 (107) Pulse Ox 98 99 96 98 06/07/18 06/07/18 06/07/18 06/07/18 22:15 22:20 22:30 22:35 Temp 98.4 98.4 Pulse 61 61 70 Resp 20 30 B/P (MAP) 142/85 (104) 158/75 (102) Pulse Ox 96 98 98 100 06/07/18 06/07/18 06/07/18 06/07/18 22:45 23:17 23:35 23:45 Pulse 60 62 Resp 16 B/P (MAP) 154/78 (103) Pulse Ox 99 97 98 O2 Delivery Room Air 06/07/18 06/08/18 06/08/18 06/08/18 23:50 00:00 00:00 00:05 Pulse 85 55 60 Resp 18 16 13 B/P (MAP) 138/86 (103) 129/78 (95) Pulse Ox 97 98 98 O2 Delivery Room Air 06/08/18 06/08/18 06/08/18 06/08/18 00:15 00:20 00:30 00:35 Pulse 75 63 62 66 Resp 14 16 17 14 B/P (MAP) 129/87 (101) 143/78 (99) Pulse Ox 98 97 97 97 06/08/18 06/08/18 06/08/18 06/08/18 00:45 00:50 01:00 01:05 Pulse 71 59 57 60 Resp 19 14 13 13 B/P (MAP) 141/73 (95) 142/70 (94) Pulse Ox 97 95 95 96 06/08/18 06/08/18 06/08/18 06/08/18 01:15 01:20 01:30 01:35 Pulse 60 56 55 60 Resp 16 12 12 12 B/P (MAP) 143/79 (100) 135/78 (97) Pulse Ox 98 96 95 95 06/08/18 06/08/18 06/08/18 06/08/18 01:50 02:00 02:45 02:50 Temp 98.4 98.4 Pulse 56 57 84 Resp 15 20 20 B/P (MAP) 135/75 (95) 130/83 (99) Pulse Ox 96 97 95 96 06/08/18 06/08/18 06/08/18 06/08/18 03:00 03:05 03:15 03:20 Pulse 55 68 56 Resp 20 20 20 B/P (MAP) 129/81 (97) 142/78 (99) Pulse Ox 95 96 96 96 06/08/18 06/08/18 06/08/18 06/08/18 03:45 03:50 04:00 04:00 Pulse 58 53 Resp 20 B/P (MAP) 127/75 (92) Pulse Ox 98 97 99 O2 Delivery Room Air 06/08/18 06/08/18 06/08/18 06/08/18 04:05 04:15 04:20 04:30 Pulse 56 52 60 53 Resp 14 18 16 B/P (MAP) 134/75 (94) 132/89 (103) Pulse Ox 96 98 98 96 06/08/18 06/08/18 06/08/18 06/08/18 04:35 04:45 04:50 05:15 Pulse 51 53 52 53 Resp 22 20 16 17 B/P (MAP) 137/76 (96) 140/79 (99) Pulse Ox 95 96 95 95 06/08/18 05:30 Pulse 59 Resp 16 Pulse Ox 97 Intake and Output 06/07/18 06/07/18 06/08/18 15:00 23:00 07:00 Intake Total 1500 ml Output Total 200 ml Balance 1300 ml Laboratory Tests Test 06/07/18 19:25 06/07/18 20:56 06/08/18 01:52 06/08/18 02:18 White Blood Count 11.9 10^3/uL 12.6 10^3/uL Red Blood Count 4.97 10^6/uL 5.04 10^6/uL Hemoglobin 14.8 g/dL 15.3 g/dL Hematocrit 43.2 % 44.2 % Mean Corpuscular Volume 86.9 fL 87.7 fL Mean Corpuscular Hemoglobin 29.8 pg 30.4 pg Mean Corpuscular Hemoglobin Concent 34.3 g/dL 34.6 g/dL Red Cell Distribution Width 12.1 % 12.2 % Platelet Count 162 10^3/uL 195 10^3/uL Mean Platelet Volume 10.2 fL 9.7 fL Neutrophils (%) (Auto) 51.5 % 91.0 % Lymphocytes (%) (Auto) 42.1 % 6.2 % Monocytes (%) (Auto) 5.4 % 2.5 % Neutrophils # (Auto) 6.1 10^3/uL 11.5 10^3/uL Lymphocytes # (Auto) 5.0 10^3/uL 0.8 10^3/uL Monocytes # (Auto) 0.6 10^3/uL 0.3 10^3/uL Absolute Immature Granulocyte (auto 0.03 10^3 u/L 0.03 10^3 u/L Eosinophils % 0.4 % 0.0 % Basophils % 0.3 % 0.1 % Basophils # 0.0 10^3/uL 0.0 10^3/uL Eosinophil Count 0.1 10^3/uL 0.0 10^3/uL Prothrombin Time 12.0 SEC 11.4 SEC Prothrombin Time INR (Non-Therap) 1.2 1.1 Activated Partial Thromboplast Time 22.1 SEC 24.4 SEC Fibrinogen 167 mg/dL 165 mg/dL Sodium Level 140 mmol/L 138 mmol/L Potassium Level 3.7 mmol/L 4.3 mmol/L Chloride Level 107.0 mmol/L 104.0 mmol/L Carbon Dioxide Level 20.6 mmol/L 23.3 mmol/L Anion Gap 16.1 15.0 Blood Urea Nitrogen 24 mg/dL 18 mg/dL Creatinine 1.19 mg/dL 1.18 mg/dL Estimated GFR () 89.4 90.3 BUN/Creatinine Ratio 20.0 15.0 Glucose Level 143 mg/dL 171 mg/dL Calcium Level 8.7 mg/dL 8.4 mg/dL Phosphorus Level 3.3 mg/dL Total Bilirubin 0.4 mg/dL 0.5 mg/dL Aspartate Amino Transf (AST/SGOT) 18 U/L 20 U/L Alanine Aminotransferase (ALT/SGPT) 18 U/L 23 U/L Alkaline Phosphatase 68 U/L 64 U/L Total Creatine Kinase 240 U/L 292 U/L Total Protein 6.7 g/dL 6.7 g/dL Albumin 3.9 g/dL 3.7 g/dL Globulin 2.8 3.0 Percent Immature Gran (Cell Imm) 0.30 % 0.20 % Urine Collection Type CCMS Urine Color STRAW Urine Appearance CLEAR Urine Bilirubin NEGATIVE MG/DL Urine Ketones 50 mg/dL Urine Specific [place] 1.015 Urine pH 5 Urine Protein NEGATIVE Urine Urobilinogen NORMAL Urine Nitrate NEGATIVE Urine Leukocyte Esterase NEGATIVE Urine Blood NEGATIVE Urine Glucose NORMAL Differential Total Cells Counted 100 #CELLS Segmented Neutrophils 71 % Band Neutrophils 19 % Lymphocytes 7 % Monocytes 2 % Absolute Eosinophils (Manual) 1 % Atypical Lymphocytes % Test 06/08/18 05:38 White Blood Count 9.6 10^3/uL Red Blood Count 5.24 10^6/uL Hemoglobin 15.6 g/dL Hematocrit 45.4 % Mean Corpuscular Volume 86.6 fL Mean Corpuscular Hemoglobin 29.8 pg Mean Corpuscular Hemoglobin Concent 34.4 g/dL Red Cell Distribution Width 12.2 % Platelet Count 188 10^3/uL Mean Platelet Volume 10.0 fL Neutrophils (%) (Auto) 82.4 % Lymphocytes (%) (Auto) 9.8 % Monocytes (%) (Auto) 7.5 % Neutrophils # (Auto) 7.9 10^3/uL Lymphocytes # (Auto) 0.9 10^3/uL Monocytes # (Auto) 0.7 10^3/uL Absolute Immature Granulocyte (auto 0.02 10^3 u/L Eosinophils % 0.0 % Basophils % 0.1 % Basophils # 0.0 10^3/uL Eosinophil Count 0.0 10^3/uL Prothrombin Time 12.3 SEC Prothrombin Time INR (Non-Therap) 1.2 Activated Partial Thromboplast Time 24.3 SEC Fibrinogen 182 mg/dL Sodium Level 138 mmol/L Potassium Level 4.5 mmol/L Chloride Level 105.0 mmol/L Carbon Dioxide Level 25.1 mmol/L Anion Gap 12.4 Blood Urea Nitrogen 17 mg/dL Creatinine 1.21 mg/dL Estimated GFR () 87.7 BUN/Creatinine Ratio 14.0 Glucose Level 207 mg/dL Calcium Level 8.7 mg/dL Total Bilirubin 0.6 mg/dL Aspartate Amino Transf (AST/SGOT) 17 U/L Alanine Aminotransferase (ALT/SGPT) 8 U/L Alkaline Phosphatase 61 U/L Total Creatine Kinase 297 U/L Total Protein 6.7 g/dL Albumin 3.8 g/dL Globulin 2.9 Percent Immature Gran (Cell Imm) 0.20 % Current Medications Medications (Trade) Dose Ordered Sig/Manuel PRN Reason Start Time Stop Time Status Last Admin Acetaminophen (Tylenol) 1,000 mg Q6H PRN PAIN MILD 06/07/18 21:00 07/07/18 20:59 Acetaminophen/ Hydrocodone Bitart ([place] 5mg) 1 ea Q4H PRN PAIN 06/07/18 21:00 07/07/18 20:59 06/08/18 00:30 Crotalidae Polyvalent Antivenin (Crofab) 2 vial Q6HR 06/08/18 00:00 06/08/18 12:01 06/08/18 01:04 Famotidine (Pepcid) 20 mg BID 06/08/18 09:00 07/08/18 08:59 Morphine Sulfate (Morphine Sulfate) 2 mg Q4H PRN PAIN 06/07/18 22:00 07/07/18 21:59 06/08/18 07:45 Ondansetron HCl (Zofran) 4 mg Q4H PRN NAUSEA / VOMITING 06/07/18 21:00 07/07/18 20:59 Sodium Chloride 1,000 ml @ 100 mls/hr Q10H 06/07/18 21:00 07/07/18 20:59 06/08/18 07:48 Assessment/Plan Assessment/Plan Assessment/Plan 28 yo male with rattlesnake bite - received 20 vials of CroFab and is clinically improving - will recheck coags this afternoon SERA BROWN MD Jun 09, 2018 13:10
[2018-06-10] VITALS: BP 145/78
[2018-06-10 04:45] VITALS: BP 120/79
[2018-06-10 05:09] LABS: BASOPHIL % 0.4 % (0.0-0.2); EOSINOPHIL # 0.1 10^3/uL (0.0-0.2); EOSINOPHIL % 1.7 % (0.0-5.0); LYMPHOCYTES # 2.9 10^3/uL (1.0-4.8); LYMPHOCYTES % 34.7 % (24.0-44.0); MEAN CELL HGB 30.4 pg (26-34); MEAN CELL HGB CONCENTRATION 34.1 g/dL (33-37); MEAN CORP VOLUME 89.2 fL (78-100); MEAN PLATELET VOLUME 9.9 fL (7.8-11.0); MONOCYTES # 0.6 10^3/uL (0.3-0.8); MONOCYTES % 6.9 % (5.0-12.0); NEUTROPHIL # 4.7 10^3/uL (1.8-7.7); NEUTROPHILS % 56.2 % (41.0-85.0); RED CELL DISTRIBUTION WIDTH 12.4 % (11.5-14.5); WHITE BLOOD CELL 8.4 10^3/uL (4.5-11.0)
--- NOTE | 2018-06-10 06:57 | DSH ---
DATE OF DISCHARGE: 06/10/2018 ADMITTING DIAGNOSES: Rattlesnake bite to the right hand with coagulopathy and right upper extremity edema. DISCHARGE DIAGNOSES: Rattlesnake bite. HOSPITAL COURSE: Hospital course is as follows: The patient is a pleasant 28-year-old gentleman who had a rattlesnake bite to the right dorsum of his right hand. He was immediately transported to our facility and CroFab loading dose was given, and he was admitted to our ICU. He had swelling that actually went up to near his shoulder before it finally started to subside which was approximately 30 hours later. He has actually received a total of 20 vials of CroFab already, and he is clinically improved. Initial coags were slightly off with decreasing fibrinogen and elevated PT/INR. His platelet count has been stable, but after 48 hours, his coags have normalized. This morning, his CBC is normal. His PT, INR, and PTT are normal. Fibrinogen is normal. Edema is improved. He states that the pain is much improved. At this point, he will be discharged to home. He wants to follow up with me since he does not have a primary care provider, so my office staff will make an appointment on to follow up with me, so I can take a look at the wound again. He is to keep the wound clean and regular diet. Renu Dominguez MD DR: BERTHA/merle JOB# [id number]
[2018-06-10 09:30] VITALS: BP 120/79
== END 2018-06-10 09:30 | disposition home or self-care (01) | DRG 918 ==
LOC: ER 18:44 → ICU 20:15
PROVIDERS: ADMIT Internal Medicine; ATTEND Internal Medicine
DX: T63.011A Toxic effect of rattlesnake venom, accidental (unintentional), initial encounter (principal); D68.9 Coagulation defect, unspecified; F17.210 Nicotine dependence, cigarettes, uncomplicated; Y92.89 Other specified places as the place of occurrence of the external cause; Z88.1 Allergy status to other antibiotic agents
CPT/HCPCS: 36415; 80053; 81002; 82550; 82948; 84100; 85025; 85370; 85610; 85730; 93005; 99291; J0171; J0696; J0840; J1200; J2270; J2405; J2930; J3490; J7030; J7050; 73130-RT; A9270